=== PATIENT | female | born 2000 | race Caucasian/White ===

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

== ENCOUNTER 2024-01-11 07:56 | Emergency (ER) | payer MEDICAID, OTHER ==
[~2024-01-11] VITALS: Ht 160 cm; Wt 61.0 kg
[2024-01-11 07:58] VITALS: O2SAT 100
[2024-01-11 08:30] VITALS: TEMP 99.1
[2024-01-11 08:38] LABS: HEMATOCRIT. 42.6 % (36.0-48.0); HEMOGLOBIN. 14.1 g/dL (12.0-16.0); MEAN CORPUSCULAR HGB CONC 33.2 g/dL (31.0-37.0); MEAN CORPUSCULAR VOLUME 93.2 fL (81.0-99.0); MEAN PLATELET VOLUME 9.5 fl (7.4-10.4); PLATELET 213 x1000/uL (130-400); RED BLOOD CELL COUNT 4.57 mill/uL (4.2-5.4); RED CELL DISTRIBUTION WIDTH 13.4 % (11.6-14.6); WHITE BLOOD COUNT 11.8 x1000/uL (4.5-11.0)
[2024-01-11] MEDS: SODIUM CHLORIDE 0.9% 1,000 ML IV ONE (08:43)
[2024-01-11] MEDS: KETOROLAC 30MG/ML VIAL IV STA (08:43)
[2024-01-11] MEDS: ONDANSETRON HCL 4MG/2ML INJ IV STA (08:43)
[2024-01-11 08:50] LABS: CLARITY URINE CLEAR (CLEAR); COLOR URINE YELLOW (YELLOW); GLUCOSE URINE NEGATIVE (NEGATIVE); KETONES URINE 1+ (NEGATIVE); LEUKOCYTE ESTERASE URINE NEGATIVE (NEGATIVE); NITRITE URINE NEGATIVE (NEGATIVE); OCCULT BLOOD URINE 1+ (NEGATIVE); PH URINE 6.5 (4.5-8.0); PROTEIN URINE TRACE (NEGATIVE); UROBILINOGEN URINE 0.2 E.U./dL (0.2-1.0)
[2024-01-11 08:52] LABS: DIFFERENTIAL COMMENT 1
[2024-01-11 08:53] LABS: CHLORIDE 102 mEq/L (98-107); POTASSIUM 4.6 mEq/L (3.5-5.1); SODIUM 132 mEq/L (136-145)
[2024-01-11 08:54] LABS: CALCIUM 9.1 mg/dL (8.7-10.4); CARBON DIOXIDE 22 mEq/L (21-32)
[2024-01-11 08:58] LABS: HCG SCREEN NEGATIVE
[2024-01-11 08:59] LABS: CREATININE 0.7 mg/dL (0.6-1.0)
[2024-01-11 09:00] LABS: GLUCOSE 99 mg/dL (70-105)
[2024-01-11 09:01] LABS: ALANINE AMINOTRANSFERASE 25 IU/L (10-49); ALBUMIN 4.6 g/dL (3.2-4.8); ASPARTATE AMINOTRANSFERASE 53 IU/L (<34)
[2024-01-11 09:01] LABS: MUCUS URINE 1+ /lpf (< = 2+); SQUAMOUS EPITHELIAL CELL URINE 1+ /lpf (RARE/1+)
[2024-01-11 09:02] LABS: BACTERIA URINE 2+; RBC URINE 0-2 /hpf (0-2); WBC URINE 0-2 /hpf (0-2)
[2024-01-11 09:02] LABS: BILIRUBIN DIRECT 0.2 mg/dL (<=3.0); BILIRUBIN TOTAL 0.7 mg/dL (0.1-1.0); PROTEIN TOTAL 7.9 g/dL (6.0-8.3)
[2024-01-11 09:04] LABS: UREA NITROGEN BLOOD < 5 mg/dL (9-23)
[2024-01-11 09:26] LABS: INR 1.1; PROTHROMBIN TIME 12.3 sec (9.6-11.0)
[2024-01-11] MEDS ORDERED: TOPUD PO (10:47)
[2024-01-11] MEDS ORDERED: ONDA4TAB50 PO (10:47)
[2024-01-11 12:09] VITALS: BP 114/69; PULSE 88; RESP 16
[2024-01-11 13:00] LABS: PLATELET ESTIMATE NORMAL
== END 2024-01-11 12:10 | disposition home or self-care (01) ==
LOC: ER 07:56
DX: R10.9 Unspecified abdominal pain (principal); R11.2 Nausea with vomiting, unspecified; J45.909 Unspecified asthma, uncomplicated
CPT/HCPCS: 99285; 96374; 76705; 96361; 96375; 80076; 80048; 81003; 84703; 83690; 85025; 85610; 36415; J1885; J2405; J7030